=== PATIENT | female | born 1965 | race African-American/Black ===

== ENCOUNTER 2017-12-24 06:46 | Emergency (ER) | payer MEDICARE, OTHER ==
[~2017-12-24] VITALS: Ht 185.4 cm; Wt 83.9 kg
--- NOTE | 2017-12-24 06:48 | Emergency Room Report ---
History of Present Illness General Source: Patient, Family Member, EMS Present Illness HPI 58-year-old female brought in by EMS with shortness of breath for 2 weeks. Associated with dry cough, rhinorrhea, nasal congestion. No fevers or chills. No history of smoking, CAD, COPD, asthma, or CHF. Patient states she went to urgent care 1 week ago and was diagnosed with "bronchitis " and was given albuterol inhaler and some other medications which she does not remember. No history of PE or ACS - no recent immobilization, recent surgery, no oral control, non-smoker Allergies: Coded Allergies: PENICILLINS (Verified Allergy, Unknown, 12/24/17) Patient History Past Medical History: CVA/TIA Past Surgical History: none Pertinent Family History: none Social History: Denies: smoking, alcohol use, drug use Now: No Immunizations: UTD Reviewed Nursing Documentation: PMH: Agreed, PSxH: Agreed Review of Systems All Other Systems: negative except mentioned in HPI Physical Exam Sp02 EP Interpretation: reviewed, normal General Appearance: normal inspection, well appearing, no apparent distress, alert, GCS 15, non-toxic Head: normocephalic, atraumatic Eyes: bilateral eye PERRL, bilateral eye EOMI ENT: normal ENT inspection, hearing grossly normal, normal pharynx, no angioedema, normal voice, TMs + canals normal, uvula midline, moist mucus membranes Neck: normal inspection, full range of motion, supple, thyroid normal, no meningismus, no bony tend, other - Trach scar Respiratory: normal inspection, lungs clear, normal breath sounds, no rhonchi, no respiratory distress, no retraction, no accessory muscle use, no wheezing, speaking full sentences Cardiovascular #1: regular rate, rhythm, no edema, no JVD, normal capillary refill Gastrointestinal: normal inspection, normal bowel sounds, non tender, soft, no mass, no peritonitis, non-distended, no guarding, no hernia, no pulsatile mass Genitourinary: no CVA tenderness Musculoskeletal: normal inspection, back normal, normal range of motion, no calf tenderness, pelvis stable, Nigel's Sign negative Neurologic: normal inspection, alert, oriented x3, responsive, microsoft application developer III-XII nml as tested, motor strength/tone normal, cerebellar normal, normal gait, speech normal Psychiatric: normal inspection, judgement/insight normal, mood/affect normal, no suicidal/homicidal ideation, no delusions Skin: normal inspection, normal color, no rash Lymphatic: normal inspection, no adenopathy Medical Decision Making Diagnostic Impression: Primary Impression: SOB (shortness of breath) Additional Impression: Bronchitis ER Course VSS, afebrile DDx includes bronchitis more likely ACS PE less likely given associated cough, URI symptoms, symptoms lasting 2 weeks ECG: CXR: No PNA, PTX, cardiomegaly or CHF - Unlikely CHF given no CHF on CXR, no history of CHF, no rales on exam, O2 sat 100% on RA - Likely bronchitis given improvement with nebs, steroids - Low suspicion for PE given no hypoxia, no tachycardia, no tachypnea, no sinus tach, no rightward strain on ECG, no [id number] pattern - Unlikely PNA given afebrile, no leuks, no PNA on CXR Reassured patient She has albuterol inhaler already Rx for prednisone Advised cough can last for weeks with bronchitis Advised close PMD followup ER course: Patient has remained stable during ED stay. Disposition: Patient is to be discharged to home. Prescriptions given are prednisone, promethazine, codeine Patient is instructed to follow up with their primary care doctor within 5 days. Strict return precautions discussed with patient such as fever, chills, worsening/severe pain, nausea, vomiting, which may indicate severe illness. Patient verbalizes understanding and agrees with plan. Please note that this Emergency Department Report was dictated using [employer] marketing coordinator technology software, occasionally this can lead to erroneous entry secondary to interpretation by the dictation equipment EKG Diagnostic Results Rate: normal Rhythm: NSR ST Segments: no acute changes ASA given to the pt in ED: No Rhythm Strip Diag. Results EP Interpretation: yes Rate: 77 Rhythm: NSR, no PVC's, no ectopy Chest X-Ray Diagnostic Results Chest X-Ray Diagnostic Results : Chest X-Ray Ordered: Yes # of Views/Limited/Complete: 1 View Indication: Shortness of Breath EP Interpretation: Yes Interpretation: no consolidation, no effusion, no pneumothorax, no acute cardiopulmonary disease Impression: No acute disease Status: improved Disposition: HOME, SELF-CARE Scripts Prednisone* (PREDNISONE*) 20 Mg Tablet 40 MG ORAL DAILY for 4 Days, #8 TAB Prov: BALDO CLEMONS M.D. 12/24/17 Promethazine HCl/Codeine (Prometh-Codein 6.25-10 mg/5 ml) 5 Ml Syrup 5 ML PO TID for For Cough for 7 Days, #1 UNIT Prov: BALDO CLEMONS M.D. 12/24/17 BALDO CLEMONS M.D. Dec 24, 2017 06:48
[2017-12-24] MEDS ORDERED: PROAIR HFA8.5 GM INH (06:57)
[2017-12-24] MEDS ORDERED: VENTOLIN HFA18 GM INH (06:57)
[2017-12-24] MEDS ORDERED: Albuterol ud Inhalation HHN ONE (07:00)
[2017-12-24 07:17] LABS: BASOPHILS % (AUTO) 1.1 % (0.0-2.0); EOSINOPHILS % (AUTO) 2.2 % (0.0-3.0); HEMATOCRIT 38.6 % (37.0-47.0); HEMOGLOBIN 12.7 G/DL (12.0-16.0); LYMPHOCYTES % (AUTO) 39.6 % (20.0-45.0); MEAN CORPUSCULAR VOLUME 88 FL (80-99); MONOCYTES % (AUTO) 11.7 % (1.0-10.0); NEUTROPHILS % (AUTO) 45.5 % (45.0-75.0); PLATELET COUNT 164 K/UL (150-450); RED BLOOD COUNT 4.36 M/UL (4.20-5.40); RED CELL DISTRIBUTION WIDTH 12.2 % (11.6-14.8); WHITE BLOOD COUNT 5.4 K/UL (4.8-10.8)
[2017-12-24 07:19] VITALS: BP 126/68
[2017-12-24 07:26] LABS: ANION GAP 11 mmol/L (5-15); BLOOD UREA NITROGEN 20 mg/dL (7-18); CALCIUM 9.5 MG/DL (8.5-10.1); CARBON DIOXIDE 26 MMOL/L (21-32); CHLORIDE 104 MMOL/L (98-107); CREATININE 1.1 MG/DL (0.55-1.30); POTASSIUM 3.4 MMOL/L (3.5-5.1); SODIUM 140 MMOL/L (136-145)
[2017-12-24 07:40] LABS: ALANINE AMINOTRANSFERASE 27 U/L (12-78); ALBUMIN 3.7 G/DL (3.4-5.0); ALBUMIN/GLOBULIN RATIO 0.9 (1.0-2.7); ALKALINE PHOSPHATASE 51 U/L (46-116); ASPARTATE AMINO TRANSFERASE 21 U/L (15-37); BILIRUBIN,TOTAL 0.4 MG/DL (0.2-1.0); CKMB 1.2 NG/ML (0.0-3.6); CREATINE KINASE 68 U/L (26-308)
[2017-12-24] MEDS ORDERED: PREDNISONE20 MG ORAL (08:18)
[2017-12-24] MEDS ORDERED: PROMETH-CODEIN 65 ML PO (08:18)
[2017-12-24 08:26] VITALS: BP 120/68
--- NOTE | 2017-12-24 12:10 | Diagnostic Imaging Report ---
Indication: Shortness of breath Technique: One view of the chest Comparison: none Findings: Lungs and pleural spaces are clear. The heart size is normal Impression: No acute process This agrees with the preliminary interpretation provided by the emergency room physician
--- NOTE | 2017-12-25 15:59 | Cardiology Report ---
APPROVED REPORT EKG Measurement Heart [id number] Sinus rhythm with premature atrial complexes Otherwise normal ECG
== END 2017-12-24 08:36 | disposition home or self-care (01) ==
LOC: EDBD 06:46 → EMR 06:53
DX: J40 Bronchitis, not specified as acute or chronic (principal); Z88.0 Allergy status to penicillin; Z86.73 Personal history of transient ischemic attack (TIA), and cerebral infarction without residual deficits
CPT/HCPCS: 36415; 71045; 80053; 82550; 82553; 83880; 84484; 85025; 93005; 94640; 99284; J7512